=== PATIENT | female | born 2000 | race Caucasian/White ===

== ENCOUNTER 2024-08-29 11:04 | Outpatient (AMB) | payer MEDICAID, SELFPAY ==
--- NOTE | 2024-08-29 11:38 | OBCLNT_ITS ---
Vital Signs 08/29/24 11:42 Height 1.6 m Height Method Stated Weight 73.085 kg Weight Measurement Method Standing Scale BMI 28.5 BP 112/77 Blood Pressure Source Automatic Cuff Blood Pressure Location Left Upper Arm Position Sitting Respiration 18 Pulse 98 Pulse Source Monitor Temp 98.1 F Temp Source Oral Pulse Oximetry (%) 98 Oxygen Delivery Method Room Air Allergies/Home Meds Allergies & Medications Allergies NKA Allergy (Unknown, Uncoded 08/29/24 11:44) Medication Reconciliation hydrocortisone 2.5 % topical cream with perineal applicator (Proctosol HC) 1 applic [place] QD-BID PRN hemorrhoids 4 weeks #30 grams 08/29/24 [Rx] Intake Visit Data Collection New Patient or Established: New Patient (never been to [facility]) Reason for Visit:: OB TRANSFER Seen by Clinical Staff ONLY (RN/MA): No Defect Cutter Required: No Do You Feel Safe at Home: Yes Authorities Contacted: N/A PCP or OBGYN visit in last 3 months: Yes Hx Now: Yes Are you currently on any form of Control: No Last menstrual period: 12/21/23 Pain Present Currently: No Pain Scale Used: Yan-Boone/Numerical Pain scale:: 0 Smoking Status Smoking Status: 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 Questionnaires Covid-19 Vaccine Questionnaire Has patient been vacinated for Covid-19 Have you been vacinated for Covid-19: Yes PHQ-9 PHQ-2 Over the last 2 weeks, how often have you been bothered by any of the following problems? 1. Little interest or pleasure in doing things: not at all 2. Feeling down, depressed, or hopeless: not at all Total score: 0 PHQ-9 3. Trouble falling or staying asleep, or sleeping too much: Not at all 4. Feeling tired or having little energy: Not at all 5. Poor appetite or overeating: Not at all 6. Feeling bad about yourself - or that you are a failure or have let yourself or your family down: Not at all 7. Trouble concentrating on things, such as reading the newspaper or watching television: Not at all 8. Moving or speaking so slowly that other people could have noticed? - Or the opposite - being so fidgety or restless that you have been moving around a lot more than usual: not at all 9. Thoughts that you would be better off or of hurting yourself in some way: Not at all Total score: 0 Source: Developed by Drs. Edu Ramsay, Brina Allen, Fransico Arvizu and colleagues, with an educational romaine from [employer]. Depression screen completed yes Social History Living Situation History Marital Status: Single Lives With: Family Housing: House Tobacco History Smoking Status: 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 Second Hand Smoke Exposure: No Alcohol History Alcohol Intake: Never Domestic Abuse History Do You Feel Safe at Home: Yes Past Medical History Past Medical History Have you ever been diagnosed with any of the following: Neurological Problems Cerebrovascular Accident (CVA): No Transient Ischemic Attacks (TIA): No Dementia: No Alzheimer's Disease: No Parkinson's Disease: No Seizures: No Guillain-[place] Syndrome: No Cardiology Problems Myocardial Infarction: No Cardiac Arrhythmia: No Atrial Fibrillation: No Respiratory Problems Chronic Obstructive Pulmonary Disease (COPD): No Asthma: No Bronchitis: No Tuberculosis: No Hx Cough: No Cough: No Wheezing: No Chest Deformities: No Smoking: No Smoking Cessation Counseling: No Smoking Exposure: No Tobacco Use: No Stomache/Intestinal Problems Liver Cancer: No Hepatitis: No Cirrhosis: No Pancreatic Cancer: No Genital/Urinary Problems Chronic Kidney Disease: No Renal Disease: No Kidney Stones: No Polycystic Kidney Disease: No Reproductive Problems Breast Cancer: No Endometriosis: No Fibroids: No Genital Herpes: No Gonorrhea: No Previous Pregnancies: Yes Syphilis: No Musculoskeletal Problems Muscular Dystrophy: No Myasthenia Gravis: No Marfan's Syndrome: No Bone Cancer: No Rheumatoid Arthritis: No Osteoporosis: No Head,Eye,Nose,Throat Problems Cataracts: No Glaucoma: No Blind: No Retinal Detachment: No Macular Degeneration: No Chronic Ear Infections: No Deafness: No Eye Prosthesis: No Endocrine Problems Diabetes Mellitus Type 1: No Diabetes Mellitus Type 2: No Hypoglycemia: No Post's Syndrome: No [place]'s Disease: No Blood Problems Anemia: No Leukemia: No Hemophilia: No Thalassemia: No Sickle Cell Disease: No Clotting Problems: No Psychologic Problems Schizophrenia: No Recreational Drug Use: No Bipolar Disorder: No Depression: No Anxiety: No Behavior Problems: No Other Problems Hospitalization: No Autoimmune Disease: No Down Syndrome: No Autism: No Developmental Delay: No Cosmetic Surgery: No Surgical History Angioplasty: No Appendectomy: No Bariatric Surgery: No Breast Surgery: No Cancer Surgery: No History of Present Illness HPI Narrative 24-year-old 2 para 1 for first visit at [facility] OB clinic. Her last period December 21, 2023. Gives due date September 26, 2024. Patient comes with records today. Transfer from [facility]. significant for positive chlamydia in the initial appointment. Patient and partner were treated. test of cure in June was negative. Reports movement. Denies contractions. Denies leaking or bleeding. Some mucus discharge. Patient denies chronic illness. Denies social habits. Denies surgeries. Complains of a hemorrhoid and some inflammation. Patient is O+, antibody screen negative, RPR nonreactive, rubella nonimmune, hepatitis B negative, hepatitis C negative, HIV negative, GC was negative. Chlamydia positive and patient was treated. With negative test of cure. 1 hour Glucola was normal. And her A1c was 5.1. Patient had 2 MFM sono's done. Her first ultrasound May 25 patient was 22 weeks and measuring 75th percentile normal growth. Then patient had a follow-up ultrasound July 07 that showed baby 28 weeks 3 with also normal growth at 71 percentile. NIPT, AFP and carrier screens all negative OB Initial Visit OB Flowsheet OB Flowsheet Initial Weight: Not Recorded Date -?-?-?-?-?-?-?-?-?-?-?-?- EGA Weight Edema CTX Effacement BP Fundal ht Pres Dilation Effacement Station Visit Note Alb Glu FHR Mov 08/29/24 -?-?-?-?-?-?-?-?-?-?-?-?- 36w 0d 73.085 kg absent absent 112/77 36 cephalic Reports good movement. Complains of mucus discharge. Denies complaints of vaginitis. Denies leaking or bleeding. I reviewed labs with patient today GBS was done. Patient has a moderate hemorrhoid. Discussed comfort measures. Proctosol HC twice a day. Continue vitamins and iron. Discussed labor precautions. And patient stopped work August 19. So disability papers were filled out. 146 active Menstrual History Menstrual reliability: definite Flow: normal Menstrual regularity: regular Monthly: Yes Age at menarche: 12 On control pills at conception: No Associated symptoms (LMP): Denies amenorrhea, nausea, vomiting, fatigue, breast tenderness, urinary frequency, irritability, bloating or other OB History : 2 Para: 1 # of Living Children: 1 Delivery History 1st : Child's name: ANTELMO date: 04/04/22 sex: male Gestational age at delivery (weeks): 39 Delivery type: vaginal Delivery complications: NONE, 6-11 History of depression before or after : No Infection History & Risk Evaluation History of STDs: chlamydia (07/05 CHERYL-) HIV risk evaluation: low risk Hepatitis B risk evaluation: low risk Patient or partner has history of Genital Herpes: No Genetic Screening & History Genetic Screening/Teratology Counseling - Includes patient, baby's father, or anyone in either family with: 1. Patient's age 35 years or older as of estimated date of delivery: No 2. Thalassemia (Mexican, Moroccan, Mediterranean, or Background); MCV less than 80: No 3. Neural Tube Defect (Meningomyelocele, Spina Bifida, or Anencephaly): No 4. Congenital Heart Defect: No 5. Down Syndrome: No 6. Dougie-Sachs (Ashkenazi Restorationism, Cajun, Turkish [place]): No 7. Anjelica Disease (Ashkenazi Restorationism): No 8. Familial Dysautonomia (Ashkenazi Restorationism): No 9. Sickle Cell Disease or Trait (): No 10. Hemophilia or other blood disorders: No 11. Muscular Dystrophy: No 12. Cystic Fibrosis: No 13. [place]'s Chorea: No 14. Mental Retardation/Autism: No 15. Other inherited genetic or chromosomal disorder: No 16. Maternal Metabolic Disorder (EG,TYPE 1 Diabetes, PKU): No 17. Patient or baby's father had a child with defects not listed above: No 18. Recurrent loss or a stillbirth: No 19. Medications (including supplements, vitamins, herbs or otc drugs)/illicit/recreational drugs/alcohol since last menstrual period: No 20. Any other: No Infection History 1. Live with someone with TB or exposed to TB: No 2. Rash or viral illness since last menstrual period: No 3. Hepatitis B,C: No 4. History of STD: chlamydia Other (see comments) Source: [employer] Review of Systems Review of Systems Systems Reviewed: All systems reviewed, normal except as documented Constitutional Constitutional: Denies fatigue Gastrointestinal Gastrointestinal: Denies bloating, Denies nausea and Denies vomiting Genitourinary Genitourinary: Denies amenorrhea and Denies urinary frequency Psychiatric Psychiatric: Denies irritability Endocrine Endocrine: Denies fatigue Exam Narrative Physical exam: moderate hemorrhoid, no inflammation General Limitations: no limitations General Appearance: alert, in no apparent distress, comfortable, cooperative, healthy appearing, well developed and well groomed Chest Chest inspection: Present normal inspection and symmetric chest wall rise Resp Respiratory exam: Present normal lung sounds bilaterally Card Cardiovascular exam: Present regular rate, normal rhythm and normal heart sounds Abdominal Abdominal exam: Present soft (fh: 36, fht 149) and normal bowel sounds Rectal Rectal exam: Present hemorrhoids (moderate, no inflammation) External exam: Present normal external exam Psych Psychiatric exam: Present normal affect and normal mood Assessment & Plan Diagnosis / Problem List (1) Encounter for care in third trimester of first : Status: Acute (2) : Status: Acute Qualifiers: Weeks of gestation: 36 weeks Qualified Code(s): Z3A.36 - 36 weeks gestation of Plan Reviewed labs with patient. GBS today. Proctosol HC twice a day. Discussed sitz bath's and comfort measures for hemorrhoid. Increase whole grains and roughage. Increase fluids. Labor precautions given. Kick counts twice a day. Return in a week OB check Additional Plan Follow Up: 1 Week (1 week obc) Office Procedures OB Clinic LOC & Office Proc's Nursing/Assessment Patient Status: Initial/New Patient OB Clinic Nursing Assessment: Medication Reconciliation, Update PMH in EMR and Vital Signs OB Clinic Coordination of Care: Complex Care and Chronic Disease 1-5, Consent,records obtained, informed consent, Education Simp Pt/Fam, Lab and Im aging orders, Results/Orders obtained and Staff clarify orders Special Needs: Heart tones New Patient Charge New Patient Point Assignment: [id number] Established Patient Charge Established Patient Point Charge: EP Level 4 (120-155) Bedside Ultrasounds US Transabdominal <14 weeks at bedside: Yes
[2024-08-29 11:42] VITALS: BP 112/77; PULSE 98; RESP 18; TEMP 36.7; O2SAT 98; BMI 28.5
== END 2024-08-29 12:25 | disposition home or self-care (01) ==
LOC: HODSOBC 11:04
PROVIDERS: Supervising Provider Obstetrics & Gynecology; Visit Provider Obstetrics & Gynecology
DX: Z34.03 Encounter for supervision of normal first pregnancy, third trimester (principal); Z3A.36 36 weeks gestation of pregnancy; Z36.85 Encounter for antenatal screening for Streptococcus B
CPT/HCPCS: 76801; 99214; G0463

== ENCOUNTER 2024-09-05 10:33 | Outpatient (AMB) | payer MEDICAID, SELFPAY ==
--- NOTE | 2024-09-05 10:42 | OBCLNT_ITS ---
Vital Signs 09/05/24 10:50 Height 1.6 m Height Method Stated Weight 74.899 kg Weight Measurement Method Standing Scale BMI 29.2 BP 120/78 Blood Pressure Source Automatic Cuff Blood Pressure Location Right Upper Arm Position Sitting Respiration 18 Pulse 104 H Pulse Source Monitor Temp 97.7 F Temp Source Temporal Artery Scan Pulse Oximetry (%) 98 Oxygen Delivery Method Room Air Allergies/Home Meds Allergies & Medications Allergies NKA Allergy (Unknown, Uncoded 09/05/24 10:50) Medication Reconciliation hydrocortisone 2.5 % topical cream with perineal applicator (Proctosol HC) 1 applic ME QD-BID PRN hemorrhoids 4 weeks #30 grams 08/29/24 [Rx Confirmed 09/05/24] vits no.126-ferrous fum 28 mg iron-folic acid 800 mcg tablet (Classic ) tab PO 09/05/24 [History Confirmed 09/05/24] Intake Visit Data Collection New Patient or Established: Established Patient (seen at [facility] within 3 years) Reason for Visit:: obc Do You Feel Safe at Home: Yes Authorities Contacted: N/A PCP or OBGYN visit in last 3 months: Yes Pain Present Currently: No Smoking Status Smoking Status: 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 Questionnaires Covid-19 Vaccine Questionnaire Has patient been vacinated for Covid-19 Have you been vacinated for Covid-19: Yes PHQ-9 PHQ-2 Over the last 2 weeks, how often have you been bothered by any of the following problems? 1. Little interest or pleasure in doing things: not at all 2. Feeling down, depressed, or hopeless: not at all Total score: 0 PHQ-9 8. Moving or speaking so slowly that other people could have noticed? - Or the opposite - being so fidgety or restless that you have been moving around a lot more than usual: not at all Source: Developed by Drs. Edu Ramsay, Brina Allen, Fransico Arvizu and colleagues, with an educational romaine from [email or web address]. Depression screen completed yes Social History Living Situation History Lives With: Family Housing: House Tobacco History Smoking Status: 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 Second Hand Smoke Exposure: No Alcohol History Alcohol Intake: Never Domestic Abuse History Do You Feel Safe at Home: Yes Past Medical History Past Medical History Have you ever been diagnosed with any of the following: Neurological Problems Cerebrovascular Accident (CVA): No Transient Ischemic Attacks (TIA): No Dementia: No Alzheimer's Disease: No Parkinson's Disease: No Seizures: No Guillain-[place] Syndrome: No Cardiology Problems Myocardial Infarction: No Cardiac Arrhythmia: No Atrial Fibrillation: No Respiratory Problems Chronic Obstructive Pulmonary Disease (COPD): No Asthma: No Bronchitis: No Tuberculosis: No Hx Cough: No Cough: No Wheezing: No Chest Deformities: No Smoking: No Smoking Cessation Counseling: No Smoking Exposure: No Tobacco Use: No Stomache/Intestinal Problems Liver Cancer: No Hepatitis: No Cirrhosis: No Pancreatic Cancer: No Genital/Urinary Problems Renal Disease: No Kidney Stones: No Polycystic Kidney Disease: No Reproductive Problems Breast Cancer: No Endometriosis: No Fibroids: No Genital Herpes: No Gonorrhea: No Previous Pregnancies: Yes Syphilis: No Musculoskeletal Problems Muscular Dystrophy: No Myasthenia Gravis: No Marfan's Syndrome: No Bone Cancer: No Rheumatoid Arthritis: No Osteoporosis: No Head,Eye,Nose,Throat Problems Cataracts: No Glaucoma: No Blind: No Retinal Detachment: No Macular Degeneration: No Chronic Ear Infections: No Deafness: No Eye Prosthesis: No Endocrine Problems Diabetes Mellitus Type 1: No Diabetes Mellitus Type 2: No Hypoglycemia: No Yolanda's Syndrome: No Luan's Disease: No Blood Problems Anemia: No Leukemia: No Hemophilia: No Thalassemia: No Sickle Cell Disease: No Clotting Problems: No Psychologic Problems Schizophrenia: No Recreational Drug Use: No Bipolar Disorder: No Depression: No Anxiety: No Behavior Problems: No Other Problems Hospitalization: No Down Syndrome: No Autism: No Developmental Delay: No Cosmetic Surgery: No Surgical History Angioplasty: No Appendectomy: No Bariatric Surgery: No Breast Surgery: No Cancer Surgery: No Visit OB Visit Log OB Flowsheet Initial Weight: Not Recorded Date -?-?-?-?-?-?-?-?-?-?-?-?- EGA Weight Edema CTX Effacement BP Fundal ht Pres Dilation Effacement Station Visit Note Alb Glu FHR Mov 08/29/24 -?-?-?-?-?-?-?-?-?-?-?-?- 36w 0d 73.085 kg absent absent 112/77 36 cephalic Reports good movement. Complains of mucus discharge. Denies complaints of vaginitis. Denies leaking or bleeding. I reviewed labs with patient today GBS was done. Patient has a moderate hemorrhoid. Discussed comfort measures. Proctosol HC twice a day. Continue vitamins and iron. Discussed labor precautions. And patient stopped work August 19. So disability papers were filled out. 146 active 09/05/24 -?-?-?-?-?-?-?-?-?-?-?-?- 37w 0d 74.899 kg absent occasional 120/78 37 cepha lic 1 -3 increased cramps. fetus active. denies leaking,bleeding. increased mucous discharge. fetus active. CX: L/1/medium, high. labor precaution, fkc bid. RTC 1 week. Urine: pro +1, Nit- , leuk +3 156 active NANDO Calculator Estimated Delivery Date Method Current WG Current Estimate 09/26/24 Ultrasound #1 37w 0d Other Estimates 09/26/24 LMP (Certain) 37w 0d 09/26/24 Ultrasound #2 37w 0d Assessment & Plan Diagnosis / Problem List (1) Encounter for care in third trimester of first : Status: Acute Plan discuss labor precaution, fkc bid, discuss GBS. RTC 1 week. disability papers Additional Plan Follow Up: 1 Week (1 week OBC) Office Procedures OB Clinic LOC & Office Proc's Nursing/Assessment Patient Status: Established Patient OB Clinic Nursing Assessment: Medication Reconciliation, Update PMH in EMR and Vital Signs OB Clinic Coordination of Care: Complex Care and Chronic Disease 1-5, Education Complex Pt/Fam and Staff clarify orders Established Patient Charge Established Patient Point Assignment: 85 Established Patient Point Charge: EP Level 3 (80-115)
[2024-09-05 10:50] VITALS: BP 120/78; PULSE 104; RESP 18; TEMP 36.5; O2SAT 98; BMI 29.2
== END 2024-09-05 11:05 | disposition home or self-care (01) ==
LOC: HODSOBC 10:33
PROVIDERS: Supervising Provider Advanced Practice Midwife; Visit Provider Advanced Practice Midwife
DX: Z34.03 Encounter for supervision of normal first pregnancy, third trimester (principal); Z3A.37 37 weeks gestation of pregnancy
CPT/HCPCS: 99213; G0463

== ENCOUNTER 2024-09-12 10:49 | Outpatient (AMB) | payer MEDICAID, SELFPAY ==
--- NOTE | 2024-09-12 10:51 | OBCLNT_ITS ---
Vital Signs 09/12/24 11:02 Height 1.6 m Height Method Stated Weight 74.559 kg Weight Measurement Method Standing Scale BMI 29.1 BP 113/79 Blood Pressure Source Automatic Cuff Blood Pressure Location Left Upper Arm Position Sitting Respiration 16 Pulse 81 Pulse Source Monitor Temp 98.1 F Temp Source Oral Pulse Oximetry (%) 99 Oxygen Delivery Method Room Air Allergies/Home Meds Allergies & Medications Allergies NKA Allergy (Unknown, Uncoded 09/12/24 11:03) Medication Reconciliation hydrocortisone 2.5 % topical cream with perineal applicator (Proctosol HC) 1 applic ME QD-BID PRN hemorrhoids 4 weeks #30 grams 08/29/24 [Rx Confirmed 09/12/24] vits no.126-ferrous fum 28 mg iron-folic acid 800 mcg tablet (Classic ) tab PO 09/05/24 [History Confirmed 09/12/24] Intake Visit Data Collection New Patient or Established: Established Patient (seen at [facility] within 3 years) Reason for Visit:: CARE Seen by Clinical Staff ONLY (RN/MA): No Fixed Income Analyst Required: No Do You Feel Safe at Home: Yes Authorities Contacted: N/A PCP or OBGYN visit in last 3 months: Yes Hx Now: Yes Are you currently on any form of Control: No Pain Present Currently: Yes Pain Location: Back (LOWER BACK) Pain Scale Used: Yan-Boone/Numerical Pain scale:: 7 Smoking Status Smoking Status: 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 Questionnaires Covid-19 Vaccine Questionnaire Has patient been vacinated for Covid-19 Have you been vacinated for Covid-19: Yes PHQ-9 PHQ-2 Over the last 2 weeks, how often have you been bothered by any of the following problems? 1. Little interest or pleasure in doing things: not at all 2. Feeling down, depressed, or hopeless: not at all Total score: 0 PHQ-9 3. Trouble falling or staying asleep, or sleeping too much: Not at all 4. Feeling tired or having little energy: Not at all 5. Poor appetite or overeating: Not at all 6. Feeling bad about yourself - or that you are a failure or have let yourself or your family down: Not at all 7. Trouble concentrating on things, such as reading the newspaper or watching television: Not at all 8. Moving or speaking so slowly that other people could have noticed? - Or the opposite - being so fidgety or restless that you have been moving around a lot more than usual: not at all 9. Thoughts that you would be better off or of hurting yourself in some wa y: Not at all Total score: 0 Source: Developed by Drs. Edu Ramsay, Brina Allen, Fransico Arvizu and colleagues, with an educational romaine from [employer]. Depression screen completed yes Social History Living Situation History Lives With: Family Housing: House Tobacco History Smoking Status: 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 Second Hand Smoke Exposure: No Alcohol History Alcohol Intake: Never Domestic Abuse History Do You Feel Safe at Home: Yes Past Medical History Past Medical History Have you ever been diagnosed with any of the following: Neurological Problems Cerebrovascular Accident (CVA): No Transient Ischemic Attacks (TIA): No Dementia: No Alzheimer's Disease: No Parkinson's Disease: No Seizures: No Guillain-[place] Syndrome: No Cardiology Problems Myocardial Infarction: No Cardiac Arrhythmia: No Atrial Fibrillation: No Respiratory Problems Chronic Obstructive Pulmonary Disease (COPD): No Asthma: No Bronchitis: No Tuberculosis: No Hx Cough: No Cough: No Wheezing: No Chest Deformities: No Smoking: No Smoking Cessation Counseling: No Smoking Exposure: No Tobacco Use: No Stomache/Intestinal Problems Liver Cancer: No Hepatitis: No Cirrhosis: No Pancreatic Cancer: No Genital/Urinary Problems Renal Disease: No Kidney Stones: No Polycystic Kidney Disease: No Reproductive Problems Breast Cancer: No Endometriosis: No Fibroids: No Genital Herpes: No Gonorrhea: No Previous Pregnancies: Yes Syphilis: No Musculoskeletal Problems Muscular Dystrophy: No Myasthenia Gravis: No Marfan's Syndrome: No Bone Cancer: No Rheumatoid Arthritis: No Osteoporosis: No Head,Eye,Nose,Throat Problems Cataracts: No Glaucoma: No Blind: No Retinal Detachment: No Macular Degeneration: No Chronic Ear Infections: No Deafness: No Eye Prosthesis: No Endocrine Problems Diabetes Mellitus Type 1: No Diabetes Mellitus Type 2: No Hypoglycemia: No Yolanda's Syndrome: No [place]'s Disease: No Blood Problems Anemia: No Leukemia: No Hemophilia: No Thalassemia: No Sickle Cell Disease: No Clotting Problems: No Psychologic Problems Schizophrenia: No Recreational Drug Use: No Bipolar Disorder: No Depression: No Anxiety: No Behavior Problems: No Other Problems Hospitalization: No Down Syndrome: No Autism: No Developmental Delay: No Cosmetic Surgery: No Surgical History Angioplasty: No Appendectomy: No Bariatric Surgery: No Breast Surgery: No Cancer Surgery: No Care OB Visit Log OB Flowsheet Initial Weight: Not Recorded Date -?-?-?-?-?-?-?-?-?-?-?--?- EGA Weight Edema CTX Effacement BP Fundal ht Pres Dilation Effacement Station Visit Note Alb Glu FHR Mov 08/29/24 -?-?-?-?-?-?-?-?-?-?-?-?- 36w 0d 73.085 kg absent absent 112/77 36 cephalic Reports good movement. Complains of mucus discharge. Denies complaints of vaginitis. Denies leaking or bleeding. I reviewed labs with patient today GBS was done. Patient has a moderate hemorrhoid. Discussed comfort measures. Proctosol HC twice a day. Continue vitamins and iron. Discussed labor precautions. And patient stopped work August 19. So disability papers were filled out. 146 active 09/05/24 -?-?-?-?-?-?-?-?-?-?-?-?- 37w 0d 74.899 kg absent occasional 120/78 37 cepha lic 1 -3 increased cramps. fetus active. denies leaking,bleeding. increased mucous discharge. fetus active. CX: L/1/medium, high. labor precaution, fkc bid. RTC 1 week. Urine: pro +1, Nit- , leuk +3 156 active 09/12/24 -?-?-?-?-?-?-?-?-?-?-?-?- 38w 0d 74.559 kg absent frequent 113/79 37 cephali c 3 -3 increased contraction, since midnight, fetus active, labor precaution, fkc bid, fetus active per patient, no bleeding or leaking 156 active NANDO Calculator Estimated Delivery Date Method Current WG Current Estimate 09/26/24 Ultrasound #1 38w 0d Other Estimates 09/26/24 LMP (Certain) 38w 0d 09/26/24 Ultrasound #2 38w 0d Assessment & Plan Diagnosis / Problem List (1) Encounter for care in third trimester of first : Status: Acute Plan labor precaution, fkc bid, comfort measure for early labor. discuss s/s of labor and when to go to hospital Additional Plan Follow Up: 1 Week (1 week OBC) Office Procedures OB Clinic LOC & Office Proc's Nursing/Assessment Patient Status: Established Patient OB Clinic Nursing Assessment: Medication Reconciliation, Update PMH in EMR and Vital Signs OB Clinic Coordination of Care: Complex Care and Chronic Disease 1-5, Consent,records obtained, informed consent, Education Simp Pt/Fam, Results/Orders obtained and Staff clarify orders Special Needs: Heart tones Miscellaneous Interventions: Blood/Urine Collection Established Patient Charge Established Patient Point Assignment: 150 Established Patient Point Charge: EP Level 4 (120-155)
[2024-09-12 11:02] VITALS: BP 113/79; PULSE 81; RESP 16; TEMP 36.7; O2SAT 99; BMI 29.1
== END 2024-09-12 11:19 | disposition home or self-care (01) ==
LOC: HODSOBC 10:49
PROVIDERS: Supervising Provider Advanced Practice Midwife; Visit Provider Advanced Practice Midwife
DX: Z34.02 Encounter for supervision of normal first pregnancy, second trimester (principal); Z3A.38 38 weeks gestation of pregnancy
CPT/HCPCS: 81001; 99214; G0463

== ENCOUNTER 2024-09-12 13:58 | Inpatient (IN) | payer MEDICAID, SELFPAY ==
[2024-09-12] VITALS (29 sets, daily range): BP systolic 104–133; BP diastolic 62–80; PULSE 62–119; RESP 16–20; TEMP 36.6–37.1; O2SAT 91–99; BMI 28.9; BMI 28.8
[2024-09-12 15:15] LABS: Basophils % (Auto) 0 % (0-2.5); Eosinophils % (Auto) 0 % (0-10); Hematocrit 28.7 % (36.0-46.0); Hemoglobin 9.2 g/dL (12.0-16.0); Immature Granulocytes % (Auto) 1 % (0-0); Lymphocytes # (Auto) 2.1 Thou/mm3 (1.0-4.8); Lymphocytes % (Auto) 14 % (10-50); Mean Corpuscular HGB Conc 32.1 g/dl (31.0-37.0); Mean Corpuscular Hemoglobin 22.7 pg (25.0-35.0); Mean Corpuscular Volume 71 fL (80-100); Monocytes # (Auto) 0.6 Thou/mm3 (0.0-0.8); Monocytes % (Auto) 5 % (0-12); Neutrophils # (Auto) 11.3 Thou/mm3 (1.8-7.7); Neutrophils % (Auto) 79 % (37-80); Nucleated Red Blood Cell # 0.05 Thou/mm3 (0.00-0.00); Nucleated Red Blood Cell % 0 /100 WBC (0); Platelet Count 260 Thou/mm3 (140-440); RDW Standard Deviation 44.9 fL (36.4-46.3); Red Blood Count 4.05 Miln/mm3 (4.00-5.20); White Blood Count 14.2 Thou/mm3 (3.6-11.0)
[2024-09-12] MEDS: fentaNYL CIT INJ 50 mCg/ML AMP 2ML 100 MCG IV (15:20)
[2024-09-12] MEDS: RINGERS LACTATED 1000 ML 1,000 ML 100 ML IV (15:21)
[2024-09-12] MEDS: OXYTOCIN in NS 20 units 20 UNIT/1,000 ML BAG 125 UNIT IV (15:48)
[2024-09-12 15:51] LABS: Syphilis Nonreactive (Nonreactive)
[2024-09-12] MEDS: LIDOCAINE HCL 1% 20 ML VIAL INFL (15:52)
[2024-09-12] MEDS: BENZO/LANO/ALOE (Dermoplast) 60 GM CAN 1 SPRAY TOP (16:04)
[2024-09-12] MEDS: FAMOTIDINE 20 MG TABLET PO (17:30)
--- NOTE | 2024-09-12 17:31 | PD.LDHP ---
Documentation for date of: 09/12/24 OB Labor/Induct. HPI History of Present Illness Chief complaint: labor : 2 Para: 1 Term pregnancies: 1 pregnancies: 0 Living children: 1 History of Abortions: Spontaneous and Elective: 0 History of Vaginal deliveries: 1 History of sections: No History of : No Date of last menstrual period: 12/20/23 NANDO: 09/26/24 Gestational Age (weeks): 38 Gestational Age (days): 0 Gestational age based on last menstrual period: 38 History of present illness: 24-year-old 2 para 1 admit for complaint contractions that got stronger since 12:00. Denies leaking fluid or bleeding. Reports good movement. Last period December 20, 2023. Estimated due date 09/26/2024. Denies social habits. Denies surgery. Denies chronic illness. Patient's transfer from [facility]. First visit at 9 weeks. She had her first ultrasound May 25. Patient was 22 weeks. Showed normal anatomy no problems with . GBS negative History of Present Dating criteria: LMP confirmed by 1st trimester US Adequate Care: Yes Ultrasounds: normal 1st trimester US and normal mid trimester US Obstetrical complications: none Medical complications: none Labs Labs: Negative: RPR, Hepatitis B, Rubella Titre, HIV, Chlamydia, Gonorrhea and Group Beta Strep and Unknown: Herpes Type 1, Herpes Type 2 and Covid-19 Review of Systems Review of Systems Systems Reviewed: All systems reviewed, normal except as documented Past Medical History Surgical History SURGICAL: Negative Section Meds Home Medications and Allergies Home Medications ?Medication ?Instructions ?Recorded ?Confirmed ?Type vits no.126-ferrous fum 1 tab PO QDAY 09/05/24 09/12/24 History 28 mg iron-folic acid 800 mcg tablet (Classic ) Allergies Allergy/AdvReac Type Severity Reaction Status Date / Time NKA Allergy Unknown Uncoded 09/12/24 16:33 OB Exam Physical Exam Vital signs: Temp Pulse Resp BP Pulse Ox O2 Del Method 97.8 F 71 17 120/80 98 Room Air 09/12/24 15:48 09/12/24 17:19 09/12/24 16:33 09/12/24 17:19 09/12/24 15:07 09/12/24 16:33 Narrative: Alert and oriented. Normal heart rate and rhythm. Lungs clear no wheezes. Gravid abdomen. Gynecoid pelvis. Estimated weight 7 pounds. Vaginal exam on admission was 90%, 4, -1. Vertex. Bag water intact. heart category 1 with accelerations and moderate variability and contractions every 5 minutes Detailed Labor and Delivery Exam Dilation (cm): 4 Effacement (%): 90 Cervix position: anterior station: -1 Consistency: soft Presentation: Vertex Cervical ripeness score: 8 Membranes: intact Baseline heart rate: 140 monitor accelerations: 15x15 monitor decelerations: None skilled nursing variability: Moderate (11-25) Contraction frequency (min): 5 Contraction duration (sec): 30 Tachysystole: No Contraction intensity: Moderate OB Results Labs 09/12/24 14:45 Labs: Short CBC 09/12/24 Range/Units 14:45 WBC 14.2 H (3.6-11.0) Thou/mm3 Hgb 9.2 L (12.0-16.0) g/dL Hct 28.7 L (36.0-46.0) % Plt Count 260 (140-440) Thou/mm3 OB Assessment & Plan Assessment and Plan (1) Normal labor and delivery: Status: Acute Additional Plan Induction method: none Plan: anticipate NVD and consult MD powell
--- NOTE | 2024-09-12 17:36 | OBDSUM_ITS ---
Data (More) Data Hx Section: No : 2 Term: 1 : 0 Livin Abortions: Spontaneous & Theraputic: 0 Delivery Data (More) Labor Data Initiation of labor: Spontaneous Induction/Augmentation Agent: None ROM date: 09/12/24 ROM time: 15:33 Amniotic membrane rupture type: Artificial Amniotic fluid description: Clear Delivery Data EDC: 09/26/24 EDC calculated by:: LMP/early US confirmation Date of arrival to unit: 09/12/24 Time of arrival to unit: 14:36 Onset of labor date: 09/12/24 Onset of labor time: 12:00 Complete dilation date: 09/12/24 Complete dilation time: 15:40 delivery date: 09/12/24 delivery time: 15:43 Placenta delivery date: 09/12/24 Placenta delivery time: 15:48 Stage 1 total time: Labor - Stage 1 Duration 3 hours and 40 minutes Delivered by: sarah moreira Delivery nurse: william doan [place] nurse: kaye doan Physical Security Specialist at delivery: No Support person(s) at delivery: [facility] Other staff at delivery: jaiden doan Delivery Method Delivery: Vaginal Presentation: Vertex Position: OA Anesthesia Type Primary Anesthesia: Local Secondary Anesthesia: None Delivery Room Medications Other Intrapartum Medications: No Post Delivery Medications: Tocolytics and Cytotec Post Delivery Medications N/A: No Placenta Placenta Delivery: Spontaneous (placenta completed, intact) Placenta Cultures Obtained: No Placenta Sent for Examination: No Cord Sample: Cord Blood Obtained Episiotomy Episiotomy: None Lacerations #1: Labial: Right labia and PU Perineal repair Sutures used for repair: 3.0 Vicryl EBL Estimated blood loss (ml): 400 Umbilical Cord Umbilical Vessels: 3 Nuchal Cord: None Body Cord: None Data (More) Data order: 1 [place]'s gender: Male Identification band number: [id number] weight (gms): 3170 g Weight (pounds): 6 lbs and 15.8 ozs [place] length: 48.26 cm 1 minute: 8 5 minutes: 9
[2024-09-12] MEDS: IBUPROFEN TAB 400 MG TABLET 800 MG PO (20:08)
[2024-09-12 21:09] LABS: Basophils % (Auto) 0 % (0-2.5); Eosinophils % (Auto) 0 % (0-10); Hematocrit 26.9 % (36.0-46.0); Immature Granulocytes % (Auto) 1 % (0-0); Immature Granulocytes Auto 0.14 Thou/mm3 (0.00-0.00); Lymphocytes % (Auto) 12 % (10-50); Mean Corpuscular Hemoglobin 22.9 pg (25.0-35.0); Mean Corpuscular Volume 72 fL (80-100); Monocytes # (Auto) 0.9 Thou/mm3 (0.0-0.8); Monocytes % (Auto) 5 % (0-12); Neutrophils # (Auto) 14.1 Thou/mm3 (1.8-7.7); Neutrophils % (Auto) 82 % (37-80); Nucleated Red Blood Cell # 0.09 Thou/mm3 (0.00-0.00); Nucleated Red Blood Cell % 1 /100 WBC (0); Platelet Count 260 Thou/mm3 (140-440); RDW Standard Deviation 44.7 fL (36.4-46.3); Red Blood Count 3.75 Miln/mm3 (4.00-5.20); White Blood Count 17.1 Thou/mm3 (3.6-11.0)
[2024-09-12 21:15] LABS: Hemoglobin 8.6 g/dL (12.0-16.0)
[2024-09-13 01:25] VITALS: BP 102/63; PULSE 78; RESP 17; TEMP 36.8; O2SAT 98
[2024-09-13 04:29] VITALS: BP 104/69; PULSE 76; RESP 15; TEMP 36.7; O2SAT 99
[2024-09-13] MEDS: IBUPROFEN TAB 400 MG TABLET 800 MG PO ×2 (04:38→12:48)
[2024-09-13 08:10] VITALS: BP 95/57; PULSE 78; RESP 18; TEMP 36.8; O2SAT 99
--- NOTE | 2024-09-13 08:32 | ESPR_ITS ---
Subjective Subjective Interval history: No complaints of pain. No dizziness. Bonding and breast-feeding Exam Vital Signs Temp Pulse Resp BP Pulse Ox O2 Del Method 98.1 F 76 15 104/69 99 Room Air 09/13/24 04:29 09/13/24 04:29 09/13/24 04:29 09/13/24 04:29 09/13/24 04:29 09/13/24 04:29 Narrative Exam Vital signs are stable afebrile. Breasts are soft. Fundus firm below the umbilicus. Perineum is intact. Patient had labial laceration of the clitoris that is healing. Small swelling noted. Healing well. Small lochia. Uterus well involuted. Nontender. Negative Homans' sign. 2+ DTRs Objective Labs 09/12/24 20:42 Labs: Laboratory Results - last 24 hr 09/12/24 09/12/24 14:45 20:42 WBC 14.2 H 17.1 H RBC 4.05 3.75 L Hgb 9.2 L 8.6 L Hct 28.7 L 26.9 L MCV 71 L 72 L MCH 22.7 L 22.9 L MCHC 32.1 32.0 RDW Std Deviation 44.9 44.7 Plt Count 260 260 Neut % (Auto) 79 82 H Lymph % (Auto) 14 12 [place] % (Auto) 5 5 Eos % (Auto) 0 0 Baso % (Auto) 0 0 Neut # (Auto) 11.3 H 14.1 H Lymph # (Auto) 2.1 2.0 [place] # (Auto) 0.6 0.9 H Eos # (Auto) 0.0 0.0 Baso # (Auto) 0.0 0.0 Immature Gran # (Auto) 0.20 H 0.14 H Absolute Nucleated RBC 0.05 H 0.09 H Immature Gran % 1 H 1 H Nucleated RBC % 0 1 H Syphilis Serology Nonreactive Blood Type O Positive Antibody Screen NEGATIVE Blood Bank Wristband ID Yes Assessment & Plan Problem List (1) Normal labor and delivery: Status: Acute (2) Encounter for visit: Status: Acute Plan Comment Plan Comment: Discussed comfort measures for her labial laceration. Sitz bath's twice daily. Discharge home today with baby. Continue vitamins and iron. Tylenol or ibuprofen for pain. Discussed danger signs and symptoms and signs of infection. ER precautions reviewed with patient and parameters. Discussed signs and symptoms of infection. Return in 3 weeks visit Time Spent With Patient Time: Total time spent is greater than 50% in coordination of care (as documented) at patient's floor/unit and/or counseling patient:
--- NOTE | 2024-09-13 08:35 | ESDS_ITS ---
DS: Providers Provider Date of admission: 09/12/24 16:51 Primary care physician: Physician No Primary/Family Admitting Provider: Adria Cunningham MD Attending Provider on Admission: Jenny Rubio CNM Attending Provider on DC: Jenny Rubio CNM Discharging Provider: Jenny Rubio CNM DS: Diagnosis Problem List Completed Was Problem List Reviewed/Reconciled?: Yes Summary/Hosp Course Brief History: 24-year-old 2 para 1 admit for complaint contractions that got stronger since 12:00. Denies leaking fluid or bleeding. Reports good movement. Last period December 20, 2023. Estimated due date 09/26/2024. Denies social habits. Denies surgery. Denies chronic illness. Patient's transfer from [facility]. First visit at 9 weeks. She had her first ultrasound May 25. Patient was 22 weeks. Showed normal anatomy no problems with . GBS negative Peripartum Data Delivery Method: Normal Vaginal Delivery Episiotomy Description: None Laceration Description: yes (labial ad PU with repair) complications: none Time Spent with Patient Time attestation: Total time spent providing and/or coordinating discharge services: Exam Vital Signs Temp Pulse Resp BP Pulse Ox O2 Del Method 98.1 F 76 15 104/69 99 Room Air 09/13/24 04:29 09/13/24 04:29 09/13/24 04:29 09/13/24 04:29 09/13/24 04:29 09/13/24 04:29 Discharge Plan Plan Patient Disposition: HOME (Self Care) Patient condition on transfer: Stable Prescriptions/Referrals Prescriptions/Med Rec: No Action hydrocortisone [Proctosol HC] 2.5 % cream with perineal applicator 1 applic MD QD-BID PRN (Reason: hemorrhoids) 28 Days Qty: 30 1RF Classic 28 mg iron- 800 mcg tablet 1 tab PO QDAY Referrals: No Primary/Family,Physician [Primary Care Provider] - Patient/Caregiver Discharge Instructions Meds to Beds: No Discharge Activity: resume usual activities Print Language: Emirati Activity Restrictions/Additional Instructions: Discharge home with baby today. Continue vitamins and iron. Tylenol or ibuprofen for pain. Discussed danger signs and symptoms. Discussed ER precautions and parameters. Discussed signs symptoms of infection. Discussed comfort measures for labial laceration. Sitz bath's twice daily. Return in 3 weeks visit Stand Alone Forms: Deya Award Info., Patient Portal Info Letter Discharge Order Discharge Orders: Discharge (Routine); Ordered 09/13/24 Ordered By: Jenny Rubio Planned Discharge Date 09/13/24
[2024-09-13 11:15] VITALS: BP 103/69; PULSE 90; RESP 17; TEMP 36.9; O2SAT 98
[2024-09-13 15:30] VITALS: BP 107/63; PULSE 76; RESP 18; TEMP 36.9; O2SAT 98
== END 2024-09-13 16:40 | disposition home or self-care (01) | DRG 560 ==
LOC: S4SX 16:54 → S4NX 17:50
PROVIDERS: Advanced Practice Midwife; Admitting Provider Specialist; Visit Provider Student in an Organized Health Care Education/Training Program
DX: O70.0 First degree perineal laceration during delivery (principal); Z37.0 Single live birth; Z3A.38 38 weeks gestation of pregnancy
CPT/HCPCS: 36415; 59025; 59409; 85025; 86780; 86850; 86900; 86901; J2590; J3010; J3490; J7120; A9270

== ENCOUNTER 2024-10-10 10:42 | Outpatient (AMB) | payer MEDICAID, SELFPAY ==
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
[2024-10-10 11:08] VITALS: BP 104/65; PULSE 84; RESP 16; TEMP 36.4; O2SAT 98; BMI 26.6
== END 2024-10-10 11:40 | disposition home or self-care (01) ==
LOC: HODSOBC 10:42
PROVIDERS: Supervising Provider Obstetrics & Gynecology; Visit Provider Advanced Practice Midwife
DX: Z39.2 Encounter for routine postpartum follow-up (principal); Z39.1 Encounter for care and examination of lactating mother; O99.345 Other mental disorders complicating the puerperium; F41.9 Anxiety disorder, unspecified; O90.89 Other complications of the puerperium, not elsewhere classified; R21 Rash and other nonspecific skin eruption
CPT/HCPCS: 99213; G0463

== ENCOUNTER 2024-10-17 10:30 | Outpatient (AMB) | payer MEDICAID, SELFPAY ==
[2024-10-17 10:53] VITALS: BP 106/67; PULSE 79; RESP 18; TEMP 36.2; O2SAT 98; BMI 27.8
--- NOTE | 2024-10-17 10:53 | AMBOBPPN_ITS ---
Vital Signs 10/17/24 10:53 Height 1.57 m Height Method Stated Weight 68.492 kg Weight Measurement Method Standing Scale BMI 27.8 BP 106/67 Blood Pressure Source Automatic Cuff Blood Pressure Location Left Upper Arm Position Sitting Respiration 18 Pulse 79 Pulse Source Monitor Temp 97.2 F Temp Source Oral Pulse Oximetry (%) 98 Oxygen Delivery Method Room Air Allergies/Home Meds Allergies & Medications Allergies No Known Allergies Allergy (Verified 10/17/24 10:54) Medication Reconciliation hydrocortisone 2.5 % topical cream with perineal applicator (Proctosol HC) 1 applic MD QD-BID PRN hemorrhoids 4 weeks #30 grams 08/29/24 [Rx Confirmed 10/17/24] Held on 09/12/24. Instructions: Order Change vits no.126-ferrous fum 28 mg iron-folic acid 800 mcg tablet (Classic ) 1 tab PO QDAY 09/05/24 [History Confirmed 10/17/24] loratadine 10 mg disintegrating tablet (Claritin RediTabs) 10 mg PO QDAY PRN allergy symptoms #20 tabs 10/10/24 [Rx Confirmed 10/17/24] vitamin-ferrous fumarate 28 mg iron-folic acid 800 mcg tablet ( Vitamins with Minerals) 1 tab PO QDAY #60 tabs 10/10/24 [Rx Confirmed 10/17/24] Intake Visit Data Collection New Patient or Established: Established Patient (seen at [facility] within 3 years) Reason for Visit:: Seen by Clinical Staff ONLY (RN/MA): No Dental Scheduler Required: No Do You Feel Safe at Home: Yes Authorities Contacted: N/A PCP or OBGYN visit in last 3 months: Yes Date of Last PCP or OBGYN visit: 10/10/24 Hx Now: No Are you currently on any form of Control: No Pain Present Currently: No Pain Scale Used: Yan-Boone/Numerical Pain scale:: 0 Smoking Status Smoking Status: 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 Past Medical History: No Hx Neurological Disorders, No Hx Breast Cancer, No Hx Cardiac Disorders, No Hx Cancer, No Hx Blood Disorders, No Hx Anemia, No Hx Gastrointestinal Disorders, No Hx Renal Disease, No Hx Diabetes Mellitus Type 1 and No Hx Diabetes Mellitus Type 2 Questionnaires Covid-19 Vaccine Questionnaire Has patient been vacinated for Covid-19 Have you been vacinated for Covid-19: No Social History Living Situation History Lives With: Family Housing: House Tobacco History Smoking Status: 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 Second Hand Smoke Exposure: No Alcohol History Alcohol Intake: Never Domestic Abuse History Do You Feel Safe at Home: Yes EPDS - PP Depression Screening [place] Pospartum Depression Screen I have been able to laugh and see the funny side of things: (0) As much as I always could I have looked forward with enjoyment to things: (0) As much as I ever did I have blamed myself unnecessarily when things went wrong: (0) No, never I have been anxious or worried for no good reason: (0) No, not at all I have felt scared or panicky for no very good reason: (0) No, not at all Things have been getting on top of me: (0) No, I have been coping as well as ever I have been so unhappy that I have had difficulty sleeping: (0) No, not at all I have felt sad or miserable: (0) No, not at all I have been so unhappy that I have been crying: (0) No, never The thought of harming myself has occurred to me: (0) Never Total Score: EPDS Score: Referral is indicated for score of 9 or more, suicidal, or if provider believes patient is depressed regardless of score.: 0 EPDS completed yes Care OB Visit Log OB Flowsheet Initial Weight: Not Recorded Date -?-?-?-?-?-?-?-?-?-?-?-?- EGA Weight BP Alb Glu CTX Pres Fundal ht FHR Mov Dilation Station Effacement Hx Notes Visit Note 08/29/24 -?-?-?-?-?-?-?-?-?-?-?-?- 36w 0d 73.085 kg 112/77 absent cephalic 36 146 active Reports good movement. Complains of mucus discharge. Denies complaints of vaginitis. Denies leaking or bleeding. I reviewed labs with patient today GBS was done. Patient has a moderate hemorrhoid. Discussed comfort measures. Proctosol HC twice a day. Continue vitamins and iron. Discussed labor precautions. And patient stopped work August 19. So disability papers were filled out. 09/05/24 -?-?-?-?-?-?-?-?-?-?-?-?- 37w 0d 74.899 kg 120/78 occasional cephalic 37 156 active 1 -3 increased cramps. fetus active. denies leaking,bleeding. increased mucous discharge. fetus active. CX: L/1/medium, high. labor precaution, fkc bid. RTC 1 week. Urine: pro +1, Nit-, leuk +3 09/12/24 -?-?-?-?-?-?-?-?-?-?-?-?- 38w 0d 74.559 kg 113/79 frequent cephalic 37 1 56 active 3 -3 increased contraction, since midnight, fetus active, labor precaution, fkc bid, fetus active per patient, no bleeding or leaking NANDO Calculator Estimated Delivery Date Method Current WG Current Estimate 09/26/24 Ultrasound #1 43w 0d Other Estimates 09/26/24 LMP (Certain) 43w 0d 09/26/24 Ultrasound #2 43w 0d HPI Interval History: 24 yo for 1 week pp f/u. vaginal delivery 09/12/24. babt girl. 6-15. breast and bottle. reports continued Hives over entire body. patient was seen at [facility] for hives and anxiety. tx with prednisone and Zyrtec for itching. Feels a little improved. schedule for 11/09/24. patient completed flagyl 500 bid for + BV. limited help from family, FOB does not live with patient. patient would like to start Depo today. 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 no swelling or s/sof infection. fundus firm,below umbilicus. no lochia. breast are full. no s/s of mastitis. neg homans sign External exam: Present normal external exam Speculum exam: Present normal speculum exam Bimanual exam: Present normal bimanual exam Office Procedures OB Clinic LOC & Office Proc's Nursing/Assessment Patient Status: Established Patient OB Clinic Nursing Assessment: Medication Reconciliation, Update PMH in EMR and Vital Signs OB Clinic Coordination of Care: Complex Care and Chronic Disease 1-5, Consent,records obtained, informed consent, Education Simp Pt/Fam, Lab and Imaging orders, Results/Orders obtained and Staff clarify orders Established Patient Charge Established Patient Point Assignment: 105 Established Patient Point Charge: EP Level 3 (80-115) Post Follow-up Visit Post Follow up Visit: Yes Injection/Vaccine Admin SQ Im Injection: Yes Office Meds Depo-Provera 150 mg/mL intramuscular syringe Performing Provider: Jenny Rubio CNM Performing Location: [facility] Administered by: Dalia Alfaro MA on 10/17/24 15:56 Dose Route Admin Location Dispensed Lot Number Expiration Date NDC Bin Cleaner 150 mg IM RIGHT GLUTE 1 mL [id number] 04/09/28 03543-372-02 [facility] Assessment & Plan Diagnosis / Problem List (1) care and examination: Status: Acute (2) Encounter for Depo-Provera contraception: Status: Acute Plan continue zyrtec for itching. keep appointment with for 11/09/24. patient plans to go as walk in today with [facility] provider for continued hives. discuss comfort measure and things that trigger hives. continue PNV, increase fluid. depo 150 IM today, condom x 2 week. review mehtod and side effect. rtc 3 month for depo and 4 week to f/u on hives Care Reviewed delivery summary and any complications: Yes Perineal / incision healing noted: Yes Screened for depression: Yes Depression counseling provided: Yes Discussed family planning & contraception: Yes Contraception planned: DEPO PROVERA Counseling on safe resumption of sexual activity: Yes Counseling on gradual excercise: Yes Discussed and concerns (describe), provided support: Yes Referred to electronics specialist: No Counseled on good nutrition, hydration, and self care: Yes Chronic & current problems reconciled on problem list: Yes Additional follow up plans: f/u on hives with provider, appointment for anxiety is scheduled Follow up: routine/prn Additional counseling & anticipatory guidance provided: rtc 1 week f/u on hives and 3 month for depo, condom x 2 week
== END 2024-10-17 11:19 | disposition home or self-care (01) ==
LOC: HODSOBC 10:30
PROVIDERS: Supervising Provider Advanced Practice Midwife; Visit Provider Advanced Practice Midwife
DX: Z39.2 Encounter for routine postpartum follow-up (principal); Z30.013 Encounter for initial prescription of injectable contraceptive; Z39.1 Encounter for care and examination of lactating mother
CPT/HCPCS: 96372; 99213; J3490; G0463

== ENCOUNTER 2024-11-21 13:01 | Outpatient (AMB) | payer MEDICAID, SELFPAY ==
[2024-11-21 13:05] VITALS: BP 104/68; PULSE 81; RESP 17; TEMP 36.7; O2SAT 98; BMI 26.4
--- NOTE | 2024-11-21 13:05 | AMBOBPPN_ITS ---
Vital Signs 11/21/24 13:05 Height 1.6 m Height Method Measured Weight 67.585 kg Weight Measurement Method Standing Scale BMI 26.4 BP 104/68 Blood Pressure Source Automatic Cuff Blood Pressure Location Right Upper Arm Position Sitting Respiration 17 Pulse 81 Pulse Source Monitor Temp 98.0 F Temp Source Temporal Artery Scan Pulse Oximetry (%) 98 Oxygen Delivery Method Room Air Allergies/Home Meds Allergies & Medications Allergies No Known Allergies Allergy (Verified 11/21/24 13:06) Medication Reconciliation hydrocortisone 2.5 % topical cream with perineal applicator (Proctosol HC) 1 applic MN QD-BID PRN hemorrhoids 4 weeks #30 grams 08/29/24 [Rx Confirmed 11/21/24] Held on 09/12/24. Instructions: Order Change loratadine 10 mg disintegrating tablet (Claritin RediTabs) 10 mg PO QDAY PRN allergy symptoms #20 tabs 10/10/24 [Rx Confirmed 11/21/24] vitamin-ferrous fumarate 28 mg iron-folic acid 800 mcg tablet ( Vitamins with Minerals) 1 tab PO QDAY #60 tabs 10/10/24 [Rx Confirmed 11/21/24] Intake Visit Data Collection New Patient or Established: Established Patient (seen at [facility] within 3 years) Reason for Visit:: Consent obtained for Telemed Visit: No Seen by Clinical Staff ONLY (RN/MA): No Shuttle Operator Required: No Do You Feel Safe at Home: Yes Authorities Contacted: N/A PCP or OBGYN visit in last 3 months: Yes Date of Last PCP or OBGYN visit: 10/17/24 Hx Now: No Are you currently on any form of Control: No Pain Present Currently: No Pain Scale Used: Yan-Boone/Numerical Pain scale:: 0 Smoking Status Smoking Status: 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 Past Medical History: No Hx Neurological Disorders, No Hx Breast Cancer, No Hx Cardiac Disorders, No Hx Cancer, No Hx Blood Disorders, No Hx Anemia, No Hx Gastrointestinal Disorders, No Hx Renal Disease, No Hx Diabetes Mellitus Type 1 and No Hx Diabetes Mellitus Type 2 Questionnaires Covid-19 Vaccine Questionnaire Has patient been vacinated for Covid-19 Have you been vacinated for Covid-19: No Social History Living Situation History Lives With: Family Housing: House Tobacco History Smoking Status: 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 Second Hand Smoke Exposure: No Alcohol History Alcohol Intake: Never Domestic Abuse History Do You Feel Safe at Home: Yes EPDS - PP Depression Screening [place] Pospartum Depression Screen I have been able to laugh and see the funny side of things: (0) As much as I always could I have looked forward with enjoyment to things: (0) As much as I ever did I have blamed myself unnecessarily when things went wrong: (0) No, never I have been anxious or worried for no good reason: (0) No, not at all I have felt scared or panicky for no very good reason: (0) No, not at all Things have been getting on top of me: (0) No, I have been coping as well as ever I have been so unhappy that I have had difficulty sleeping: (0) No, not at all I have felt sad or miserable: (0) No, not at all I have been so unhappy that I have been crying: (0) No, never The thought of harming myself has occurred to me: (0) Never Care OB Visit Log OB Flowsheet Initial Weight: Not Recorded Date -?-?-?-?-?-?-?-?-?-?-?-?- EGA Weight BP Alb Glu CTX Pres Fundal ht FHR Mov Dilation Station Effacement Hx Notes Visit Note 08/29/24 -?-?-?-?-?--?-?-?-?-?-?-?- 36w 0d 73.085 kg 112/77 absent cephalic 36 146 active Reports good movement. Complains of mucus discharge. Denies complaints of vaginitis. Denies leaking or bleeding. I reviewed labs with patient today GBS was done. Patient has a moderate hemorrhoid. Discussed comfort measures. Proctosol HC twice a day. Continue vitamins and iron. Discussed labor precautions. And patient stopped work August 19. So disability papers were filled out. 09/05/24 -?-?-?-?-?-?-?-?-?-?-?-?- 37w 0d 74.899 kg 120/78 occasional cephalic 37 156 active 1 -3 increased cramps. fetus active. denies leaking,bleeding. increased mucous discharge. fetus active. CX: L/1/medium, high. labor precaution, fkc bid. RTC 1 week. Urine: pro +1, Nit-, leuk +3 09/12/24 -?-?-?-?-?-?-?-?-?-?-?-?- 38w 0d 74.559 kg 113/79 frequent cephalic 37 1 56 active 3 -3 increased contraction, since midnight, fetus active, labor precaution, fkc bid, fetus active per patient, no bleeding or leaking NANDO Calculator Estimated Delivery Date Method Current WG Current Estimate 09/26/24 Ultrasound #1 48w 1d Other Estimates 09/26/24 LMP (Certain) 48w 1d 09/26/24 Ultrasound #2 48w 1d HPI Interval History: 24-year-old 2 para 2 for 10-week . Patient previously was seen at 6-week and was depressed crying have been issues with the baby's father. Patient has an ordered to not be involved with him. The father has moved away. Patient is currently living with her mother and has good family support. She reports that she went to [facility] and saw family practice for pups rash that she had on her extremities. Patient was treated with prednisone and feels much better patient had been started on Depo her last visit. This was October 13, 2024. Next Depo is due January 13. She is bonding with the baby. Patient is currently breast-feeding. Patient had an appointment with behavioral health, . And patient has another follow-up with him December 28. She reports that she talked to about anxiety and PTSD. No meds were started at that time a visit. Patient reports that in her December visit she will talk with the doctor about possibly starting medication. Last menstrual period was November 19. She is not sexually active at this point. And patient would like to extend her disability for another month. 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 uterus well involuted,non tender. breast soft. DTR 2+, no edema. negative homans, perineum intact, well healed General Limitations: no limitations General Appearance: alert, in no apparent distress, comfortable, cooperative, healthy appearing, well developed and well groomed Head Head exam: atraumatic, normocephalic and normal inspection Neck Neck exam: Present normal inspection, full ROM and trachea midline Chest Chest inspection: Present normal inspection and symmetric chest wall rise Resp Respiratory exam: Present normal lung sounds bilaterally Card Cardiovascular exam: Present regular rate, normal rhythm and normal heart sounds Psych Psychiatric exam: Present normal affect and normal mood Office Procedures OB Clinic LOC & Office Proc's Nursing/Assessment Patient Status: Established Patient OB Clinic Nursing Assessment: Medication Reconciliation, Update PMH in EMR and Vital Signs OB Clinic Coordination of Care: Complex Care and Chronic Disease 1-5, Consent,records obtained, informed consent, Education Simp Pt/Fam and 4+ Authorizations needed Established Patient Charge Established Patient Point Assignment: 100 Post Follow-up Visit Post Follow up Visit: Yes Assessment & Plan Diagnosis / Problem List (1) Routine Follow-Up: (2) depression: Status: Acute Plan repeat depo 01/08/25, walk 40 minute daily, vitamin D and calcium daily. review depo and side effect. consult with OB, extend disability to 12/22/24, due to pp depression. continue PNV, fluid, frequent feeds, . forms will be done Care Reviewed delivery summary and any complications: Yes Uterus involuted to: 3below Perineal / incision healing noted: Yes Screened for depression: Yes Depression counseling provided: Yes Discussed family planning & contraception: Yes Contraception planned: using depo Counseling on safe resumption of sexual activity: Yes Counseling on gradual excercise: Yes Discussed and concerns (describe), provided support: Yes Referred to protein specialist: No Counseled on good nutrition, hydration, and self care: Yes Chronic & current problems reconciled on problem list: Yes Infant care discussed; questions answered: feeding Follow up: routine/prn Additional counseling & anticipatory guidance provided: extend disability x 4 week, f/u with for depression, continue PNV, walk 40 minute daily. rtc 01/08 for depo (FP) Tobacco Smoking Status: 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
== END 2024-11-21 13:57 | disposition home or self-care (01) ==
LOC: HODSOBC 13:01
PROVIDERS: PCP Advanced Practice Midwife; Referring Provider Advanced Practice Midwife; Supervising Provider Advanced Practice Midwife; Visit Provider Advanced Practice Midwife
DX: Z39.2 Encounter for routine postpartum follow-up (principal); O99.345 Other mental disorders complicating the puerperium; F53.0 Postpartum depression; Z39.1 Encounter for care and examination of lactating mother